=== PATIENT | male | born 1970 | race Caucasian/White ===

== ENCOUNTER → 2018-10-11 05:59 | Outpatient (CLI) | payer OTHER, SELFPAY ==
--- NOTE | 2018-10-11 06:01 | ECHOD_ITS ---
Reason For Study: MVP Procedure This was a 2D Doppler, Color Flow transthoracic echocardiogram. Exam performed in department. Left Ventricle Normal LV size. Left ventricular systolic function is normal. The estimated ejection fraction is 60 %. Stage 1 diastolic dysfunction. No regional wall motion abnormalities noted. Right Ventricle Normal RV size. Normal systolic function. Atria Normal left atrium. Normal right atrium. Patent foramen ovale. Mitral Valve Equivocal mitral valve prolapse. Tricuspid Valve Normal tricuspid valve. Aortic Valve Trisinus/trileaflet aortic valve. Pulmonic Valve Normal pulmonic valve. Great Vessels Normal aortic root. The pulmonary artery is normal size. Normal inferior vena cava. Pericardium/Pleural No pericardial effusion. Medication Performed a rapid injection of agitated mix of 9 cc saline and 1cc air to assess for atrial septal defect. MMode/2D Measurements & Calculations LVIDd: 4.9 cm IVSd: 1.4 cm Ao root diam: 3.1 cm LVIDs: 2.9 cm LVPWd: 0.96 cm RVDd: 5.1 cm FS: 41.2 % LAV(MOD-bp): 54.6 ml LVAd ap4: 32.8 cm2 SV(MOD-sp4): 72.8 ml LAV(MOD-bp) Indexed: 25.0 ml/m2 EDV(MOD-sp4): 104.7 ml LAV(MOD-sp2): 60.8 ml EDV(sp4-el): 109.9 ml LAV(MOD-sp4): 48.3 ml LVAs ap4: 16.2 cm2 ESV(MOD-sp4): 31.9 ml ESV(sp4-el): 32.5 ml EF(MOD-sp4): 69.5 % EF(sp4-el): 70.4 % SV(sp4-el): 77.3 ml LA A4 area: 18.9 cm2 LA dimension(2D): 4.7 cm RA A4 area: 22.5 cm2 Doppler Measurements & Calculations MV E max alexey: 57.2 cm/sec Lat Peak E' Alexey: 10.0 cm/sec Med Peak E' Alexey: 5.4 cm/sec MV A max alexey: 60.7 cm/sec E/E' lat: 5.7 E/E' med: 10.7 MV E/A: 0.94 Ao V2 max: 147.7 cm/sec LV V1 max: 116.4 cm/sec PA V2 max: 115.6 cm/sec Ao max P.7 mmHg LV V1 max P.4 mmHg Ao V2 mean: 100.0 cm/sec Ao mean P.5 mmHg Ao V2 VTI: 33.3 cm TR max alexey: 202.2 cm/sec TR max P.4 mmHg Interpretation Summary Normal LV size. Left ventricular systolic function is normal. The estimated ejection fraction is 60 %. Stage 1 diastolic dysfunction. Patent foramen ovale. Ordering Physician: Yadiel Montero Referring Physician: James Corrigan Performed By: Rika Perez, [place], RVT
[2018-10-11 07:43] LABS: Absolute Lymphocyte Count 1.79 X10^3/ul (0.83-4.51); Absolute Neutrophil Count 1.9 X10^3/uL (2.0-7.7); Basophil# 0.01 X10^3/uL; Basophil% 0.2 % (0-1); Eosinophil# 0.16 X10^3/uL; Eosinophils% 3.7 % (0-5); Hematocrit 44.1 % (40-54); Hemoglobin 15.2 g/dl (13.0-16.5); Lymphocyte # 1.79 X10^3/ul (4.0); Lymphocyte % 41.8 % (19-41); Mean Corp Hgb Conc 34.5 g/gl (32-36); Mean Corpuscular Hgb 29.6 pg (27.0-32.0); Mean Platelet Vol. 9.4 fl (6.2-12.0); Monocyte% 9.3 % (0-10); Neutrophil # 1.91 X10^3/uL (2.7-7.7); Neutrophil % 44.8 % (47-70); Platelet Count 157 K/mm3 (150-450); RBC Distribution Width CV 12.7 % (11.6-14.6); RBC Distribution Width SD 40.6 fl (35.1-43.9); Red Blood Count 5.13 M/mm3 (4.6-6.2); White Blood Count 4.3 K/mm3 (4.4-11.0)
[2018-10-11 07:53] LABS: POSITIVE COUNT NO; POSITIVE DIFFERENTIAL NO; POSITIVE MORPHOLOGY NO
[2018-10-11 07:58] LABS: AST(SGOT) 23 U/L (15-37); Alanine Aminotransfer ALT/SGPT 47 U/L (16-61); Alkaline Phosphatase 66 U/L (45-117); Anion Gap 8 (5-15); BUN 19 mg/dL (7-18); BUN/Creat Ratio 18.6 RATIO (10-20); Bilirubin, Direct 0.23 mg/dL (0.00-0.30); Calcium,Total 8.5 mg/dL (8.5-10.1); Chloride 106 mmol/L (98-107); Cholesterol 172 mg/dL (200); Creatinine, Serum 1.02 mg/dL (0.70-1.30); EST Glomerular Filtration Rate 83 mL/min (>60); Est Glom Filt Rate - Afr Amer 101 mL/min (>60); Globulin 3.2 g/dL (2.2-4.2); Glucose 97 mg/dL (74-106); High Density Lipoprotein 38 mg/dL; Potassium 4.1 mmol/L (3.5-5.1); Protein, Total 7.2 g/dL (6.4-8.2); Sodium Level 139 mmol/L (136-145); Triglycerides 169 mg/dL; Very Low Density Lipoprotein 34 mg/dL (5-40)
== END ==
PROVIDERS: Family Provider Family Medicine; PCP Family Medicine; Referring Provider Internal Medicine Cardiovascular Disease; Visit Provider Internal Medicine Cardiovascular Disease
DX: R07.9 Chest pain, unspecified (principal); I10 Essential (primary) hypertension; I34.1 Nonrheumatic mitral (valve) prolapse
CPT/HCPCS: 36415; 80048; 80061; 80076; 85025; 93306; A4216